=== PATIENT | female | born 1995 | race Caucasian/White ===

== ENCOUNTER 2018-09-15 21:33 | Emergency (ER) | payer OTHER, MEDICAID ==
[~2018-09-15] VITALS: Ht 177.8 cm; Wt 77.1 kg
[~2018-09-15 21:33] MED LIST: CELEXA; HYDROCODONE-AP1 EAC6 PO; IBUPROFEN 600600 M1 PO; IBUPROFEN 800800 M1 PO; XANAX 0.25 MG0.25 MG
[2018-09-15] MEDS ORDERED: EFFEXOR XR75 MG (21:47)
[2018-09-15] MEDS ORDERED: VENLAFAXINE HC150 M1 (21:48)
[2018-09-15] MEDS ORDERED: AMOXICILLI250 MG/51 PO (22:22)
[2018-09-15] MEDS ORDERED: ACETAMINOP-COD118 ML PO (22:22)
[2018-09-15 22:28] VITALS: BP 120/66
== END 2018-09-15 22:29 | disposition home or self-care (01) ==
LOC: M.ERS 21:33
DX: J02.9 Acute pharyngitis, unspecified (principal); H92.01 Otalgia, right ear; F17.210 Nicotine dependence, cigarettes, uncomplicated; Z91.011 Allergy to milk products; Z91.09 Other allergy status, other than to drugs and biological substances

== ENCOUNTER 2018-10-27 14:11 | Emergency (ER) | payer OTHER, MEDICAID ==
[~2018-10-27] VITALS: Ht 177.8 cm; Wt 79.4 kg
[~2018-10-27 14:11] MED LIST changes: +ACETAMINOP-COD118 ML PO; +AMOXICILLI250 MG/51 PO; +EFFEXOR XR75 MG; +VENLAFAXINE HC150 M1
[2018-10-27 14:44] VITALS: BP 124/84
== END 2018-10-27 16:28 | disposition left against medical advice (07) ==
LOC: M.ERS 14:11
DX: Z53.21 Procedure and treatment not carried out due to patient leaving prior to being seen by health care provider (principal)

== ENCOUNTER 2020-05-11 17:28 | Emergency (ER) | payer OTHER, MEDICAID ==
[~2020-05-11] VITALS: Ht 175.3 cm; Wt 68.0 kg
[2020-05-11] MEDS ORDERED: ZPAK PO (18:21)
[2020-05-11] MEDS ORDERED: VENTOLIN HFA 1818 GM INH (18:21)
[2020-05-11] MEDS ORDERED: TYLENOL WITH CO1 TA1 PO (18:32)
[2020-05-11 18:42] VITALS: BP 125/81
== END 2020-05-11 18:43 | disposition home or self-care (01) ==
LOC: M.ERS 17:28
DX: J98.9 Respiratory disorder, unspecified (principal); K58.9 Irritable bowel syndrome, unspecified; F17.210 Nicotine dependence, cigarettes, uncomplicated; Z20.828 Contact with and (suspected) exposure to other viral communicable diseases; Z98.51 Tubal ligation status; Z90.49 Acquired absence of other specified parts of digestive tract; Z91.011 Allergy to milk products; Z88.8 Allergy status to other drugs, medicaments and biological substances

== ENCOUNTER 2020-09-03 12:58 | Emergency (ER) | payer OTHER, MEDICAID ==
[~2020-09-03] VITALS: Ht 175.3 cm; Wt 70.3 kg
[~2020-09-03 12:58] MED LIST changes: +TYLENOL WITH CO1 TA1 PO; +VENTOLIN HFA 1818 GM INH; +ZPAK PO
[2020-09-03 13:55] LABS: URINE BILIRUBIN NEGATIVE (Negative); URINE BLOOD TRACE (Negative); URINE CLARITY CLEAR; URINE COLOR YELLOW; URINE GLUCOSE-RANDOM NEGATIVE (Negative); URINE KETONES NEGATIVE (Negative); URINE LEUKOCYTES-REFLEX NEGATIVE (Negative); URINE NITRITE-REFLEX NEGATIVE (Negative); URINE PROTEIN NEGATIVE (Negative); URINE SPECIFIC GRAVITY 1.025 (1.005-1.030); URINE UROBILINOGEN 0.2 E.U./dl (0.2-1.0)
[2020-09-03] MEDS ORDERED: TRIAMCINOLONE10 G1 TOP (14:31)
[2020-09-03] MEDS ORDERED: TRIAMCINOLONE A80 G2 TOP (14:32)
[2020-09-03] MEDS ORDERED: DOXYCYCLINE 10100 MG PO (14:36)
[2020-09-03] MEDS ORDERED: APAP W/CODEINE1 TA2 PO (14:50)
[2020-09-03 14:51] VITALS: BP 132/76
== END 2020-09-03 14:51 | disposition home or self-care (01) ==
LOC: M.ERS 12:58
PROVIDERS: Physician Assistant
DX: S00.461A Insect bite (nonvenomous) of right ear, initial encounter (principal); L42 Pityriasis rosea; W57.XXXA Bitten or stung by nonvenomous insect and other nonvenomous arthropods, initial encounter; Y93.89 Activity, other specified; Y92.89 Other specified places as the place of occurrence of the external cause; Y99.8 Other external cause status

== ENCOUNTER 2021-07-01 08:54 | Emergency (ER) | payer OTHER, MEDICAID ==
[~2021-07-01] VITALS: Ht 172.7 cm; Wt 63.5 kg
[~2021-07-01 08:54] MED LIST changes: +APAP W/CODEINE1 TA2 PO; +DOXYCYCLINE 10100 MG PO; +TRIAMCINOLONE A80 G2 TOP; +TRIAMCINOLONE10 G1 TOP
[2021-07-01] MEDS ORDERED: ADDERALL 10 MG10 MG PO (09:05)
[2021-07-01] MEDS ORDERED: AMBIEN 10 MG TA10 MG PO (09:06)
[2021-07-01] MEDS ORDERED: CLONIDINE HCL0.3 M3 PO (09:06)
[2021-07-01] MEDS ORDERED: AUGMENTIN 875-1 EACH PO (09:13)
[2021-07-01] MEDS ORDERED: HYDROCODON-ACE1 EAC7 PO (09:13)
[2021-07-01 09:19] VITALS: BP 144/81
== END 2021-07-01 09:19 | disposition home or self-care (01) ==
LOC: M.ERS 08:54
DX: K02.9 Dental caries, unspecified (principal); F17.210 Nicotine dependence, cigarettes, uncomplicated; Z90.49 Acquired absence of other specified parts of digestive tract; Z98.51 Tubal ligation status; Z79.899 Other long term (current) drug therapy; Z91.011 Allergy to milk products; Z88.8 Allergy status to other drugs, medicaments and biological substances

== ENCOUNTER 2021-07-02 08:17 | Emergency (ER) | payer OTHER, MEDICAID ==
[~2021-07-02] VITALS: Ht 172.7 cm; Wt 63.5 kg
[~2021-07-02 08:17] MED LIST changes: +ADDERALL 10 MG10 MG PO; +AMBIEN 10 MG TA10 MG PO; +AUGMENTIN 875-1 EACH PO; +CLONIDINE HCL0.3 M3 PO; +HYDROCODON-ACE1 EAC7 PO
[2021-07-02 08:46] VITALS: BP 168/90
== END 2021-07-02 08:47 | disposition home or self-care (01) ==
LOC: M.ERS 08:17
DX: K02.9 Dental caries, unspecified (principal); F17.210 Nicotine dependence, cigarettes, uncomplicated; Z90.49 Acquired absence of other specified parts of digestive tract; Z88.8 Allergy status to other drugs, medicaments and biological substances; Z91.011 Allergy to milk products; Z79.899 Other long term (current) drug therapy